=== PATIENT | female | born 1980 | race Caucasian/White ===

== ENCOUNTER 2017-04-21 14:52 | Emergency (ER) | payer BC ==
[~2017-04-21] VITALS: Ht 167.6 cm; Wt 78.0 kg
[2017-04-21 14:54] VITALS: TEMP 36.7; Ht 167.6 cm; Wt 78.0 kg
[2017-04-21] MEDS ORDERED: CLIN1SOL23 TOP (15:42)
[2017-04-21] MEDS ORDERED: CLOB-77 TOP (15:44)
[2017-04-21] MEDS ORDERED: CETI10TA84 PO (15:46)
[2017-04-21] MEDS ORDERED: ZNTT/150 PO (15:47)
[2017-04-21] MEDS ORDERED: PRED10TA PO (15:49)
[2017-04-21] MEDS ORDERED: PTDOPS OPR (15:51)
--- NOTE | 2017-04-21 16:36 | EMERGENCY ROOM VISIT NOTE ---
History First contact with patient: 15:15 Chief Complaint: RASH Stated Complaint: RASH, PAIN IN EYE, BLISTERD History of Present Illness The patient is a 37 year old white female who presents to the Emergency Room with complaints of persisting rash on her trunk and extremities, as well as right eye pain and a headache. Patient states she had poison ed in February and was treated at that time. Symptoms fully resolved. This week she developed a similar rash on her trunk, arms, legs, neck, and face. She was seen by her PCPs office on and was given a steroid injection as well as oral prednisone. She was also prescribed Zantac but has not started it yet. She has been taking Zyrtec. She has involvement of her right arm, left arm, left hand, neck, left shoulder, bilateral flanks, lower abdomen, and left calf. She states the left flank is extremely itchy. She denies any pain. She does note that she just does not feel her usual self. She states she never gets sick. She has an aching-type feeling around her right eye. She spoke with the on- call physician today, and they recommended she come to the ED for ocular evaluation. She states she had chickenpox as a child and had an episode of shingles while with her son. No other cold symptoms. No fevers or chills. No change in vision. She denies any mucus drainage from the right eye. She has had some tearing. She feels as though the eye is strained. No other treatment. Review of Systems REVIEW OF SYSTEM: HEENT: No dizziness, hearing loss, or tinnitus. There is no difficulty swallowing and no oral lesions are present. LYMPH: No adenopathy. PULMONARY: No cough, shortness of breath, sputum production or hemoptysis. CARDIOVASCULAR: No chest pain, palpitations, shortness of breath or peripheral edema. GASTROINTESTINAL: No diarrhea, constipation, nausea, vomiting, or abdominal pain. GENITOURINARY: No dysuria, frequency, urgency or nocturia. NEUROLOGIC: No weakness, muscle tenderness, epilepsy or history of neurological problems. No history of chronic headaches. MUSCULOSKELETAL: No history of joint tenderness/swelling. No history of arthritis or arthralgias. SKIN: Current skin rash. PSYCHIATRIC: No history of depression or mental illness. ENDOCRINE: No history of diabetes, thyroid disorders, or abnormal hair growth. Past Medical/Surgical History Review surgeries: Knee surgery 4 Medical history: Significant for history of seizure 1 at age 10. Family History Significant for heart disease, cancer, kidney stones, seizures Social History Smoking Status: Never Smoker Smokeless Tobacco Use: No Alcohol Use: none Drug Use: none Marital Status: Housing Status: lives with family Occupation Status: employed Current/Historical Medications Scheduled Cetirizine (Zyrtec), 10 MG PO DAILY/PRN Clindamycin Phosphate (Topical (Clindamycin Phosphate), 1 APPLN TOP BID Clobetasol Propionate (Temovate), 1 APPLN TOP BID Olopatadine Hydrochloride (Pataday), 1 DROPS OPR DAILY Prednisone (Prednisone), 10 MG PO DAILY/UD Ranitidine (Zantac), 150 MG PO BID/PRN Physical Exam Vital Signs Date Time Temp Pulse Resp B/P (MAP) Pulse Ox O2 Delivery O2 Flow Rate FiO2 04/21/17 14:54 36.7 73 18 130/83 98 Room Air Physical Exam Gen.: Well-developed, well-nourished, young white female, in no acute distress. Sitting on a bed. Alert and oriented. Skin: Fair skinned. Warm and dry with good turgor. Multiple vesicular eruptions present on her left wrist, right wrist, right hand, left shoulder, right flank, and left calf. The previous involvement of her left cheek and chin have resolved. Neck is also resolving. Left flank has a larger patch that is macular, not raised, and almost looks bruised. It does noemí. No edema. No open wounds. She has 3 small vesicles erupting on her right cheek, just below the right eye. The patient is not diaphoretic. No abrasions. HEENT: Normocephalic atraumatic. Eyes PERRLA, EOMI. No conjunctiva or scleral injection. Slit lamp exam was performed after staining with fluorescein. There is no uptake on the cornea. No corneal abrasion, no dendritic lesion. She did have a large mucous band present across the sclera. This was removed with a Dacron swab. No foreign material was noted. Nares patent bilaterally without turbinate enlargement. No significant drainage. No epistaxis. Oropharynx without erythema or exudate. Medical Decision & Procedures Laboratory Results 04/21/17 16:30 Red Blood Count 4.93, Mean Corpuscular Volume 87.6, Mean Corpuscular Hemoglobin 30.0, Mean Corpuscular Hemoglobin Concent 34.3, Mean Platelet Volume 10.2, Neutrophils (%) (Auto) 86.6, Lymphocytes (%) (Auto) 12.3, Monocytes (%) (Auto) 0.7, Eosinophils (%) (Auto) 0.0, Basophils (%) (Auto) 0.1, Neutrophils # (Auto) 7.96, Lymphocytes # (Auto) 1.13, Monocytes # (Auto) 0.06, Eosinophils # (Auto) 0.00, Basophils # (Auto) 0.01 Test 04/21/17 16:30 White Blood Count 9.19 K/uL (4.8-10.8) Red Blood Count 4.93 M/uL (4.2-5.4) Hemoglobin 14.8 g/dL (12.0-16.0) Hematocrit 43.2 % (37-47) Mean Corpuscular Volume 87.6 fL (80-100) Mean Corpuscular Hemoglobin 30.0 pg (25-34) Mean Corpuscular Hemoglobin Concent 34.3 g/dl (32-36) Platelet Count 310 K/uL (130-400) Mean Platelet Volume 10.2 fL (7.4-10.4) Neutrophils (%) (Auto) 86.6 % Lymphocytes (%) (Auto) 12.3 % Monocytes (%) (Auto) 0.7 % Eosinophils (%) (Auto) 0.0 % Basophils (%) (Auto) 0.1 % Neutrophils # (Auto) 7.96 K/uL (1.4-6.5) Lymphocytes # (Auto) 1.13 K/uL (1.2-3.4) Monocytes # (Auto) 0.06 K/uL (0.11-0.59) Eosinophils # (Auto) 0.00 K/uL (0-0.5) Basophils # (Auto) 0.01 K/uL (0-0.2) RDW Standard Deviation 42.5 fL (36.4-46.3) RDW Coefficient of Variation 13.3 % (11.5-14.5) Immature Granulocyte % (Auto) 0.3 % Immature Granulocyte # (Auto) 0.03 K/uL (0.00-0.02) CBC obtained today was unremarkable. ED Course Patient was educated regarding today's findings. Conservative care measures were discussed. Slit-lamp exam was performed. CBC was also obtained. Patient was reassured that most of her rash appears consistent with poison ed exposure. Her left flank does not appear the same as the rest of the rash. She did show me pictures on her phone from yesterday. It was much more erythematous, raised, and urticarial in appearance than what it appears today. It has improved considerably. I would like her to continue with her current regimen of the Zantac, Zyrtec, prednisone, and oral anti-inflammatories. I do not think she requires antibiotics at this point. She does not require eyedrops at this point. She will watch the right eye and return for evaluation if conjunctival symptoms appear. Possibility of pink eye was discussed. Follow -up with her PCP this week for reexamination of the rash. She was reassured that I do not suspect varicella, shingles, or medication reaction at this point. Likelihood for contact dermatitis was discussed. Medical Decision Possibility of shingles, contact dermatitis, viral illness, thrombocytopenia, primary varicella eruption, cellulitis, and medication reaction were considered , among others. Medication Reconcilliation Current Medication List: was personally reviewed by me Blood Pressure Screening Patient's blood pressure: Normal blood pressure Impression Primary Impression: Contact dermatitis Departure Information Dispostion Home / Self-Care Forms WORK / SCHOOL INSTRUCTIONS, HOME CARE DOCUMENTATION FORM, IMPORTANT VISIT INFORMATION Patient Instructions [facility] Additional Instructions Avoid scratching if possible Finish the prednisone Continue with Zantac 150 mg once a day and Zyrtec once a day Follow-up with your PCP later this week for reexamination Avoid contact lens use today and tomorrow-watch for any mucous drainage from the right eye Return to the ED for any acute changes Problem Qualifiers Primary Impression: Contact dermatitis Contact dermatitis type: allergic Contact dermatitis trigger: unspecified trigger Qualified Codes: L23.9 - Allergic contact dermatitis, unspecified cause
[2017-04-21 16:38] LABS: BASO % 0.1 %; BASO ABS # 0.01 K/uL (0-0.2); COMPLETE YES; HEMATOCRIT 43.2 % (37-47); IG% 0.3 %; LYMPH % 12.3 %; LYMPH ABS # 1.13 K/uL (1.2-3.4); MEAN CELL VOLUME 87.6 fL (80-100); MEAN CORPUSCULAR HGB CONC 34.3 g/dl (32-36); MEAN PLATELET VOLUME 10.2 fL (7.4-10.4); MONO % 0.7 %; NEUT % 86.6 %; PLATELET COUNT 310 K/uL (130-400); RED BLOOD COUNT 4.93 M/uL (4.2-5.4); WHITE BLOOD COUNT 9.19 K/uL (4.8-10.8)
[2017-04-21 16:44] VITALS: BP 126/81; PULSE 77; O2SAT 98
== END 2017-04-21 16:45 | disposition home or self-care (01) ==
LOC: C.EDB 14:54 → C.EDD 16:45
DX: L23.9 Allergic contact dermatitis, unspecified cause (principal); R21 Rash and other nonspecific skin eruption; Z82.49 Family history of ischemic heart disease and other diseases of the circulatory system; Z82.0 Family history of epilepsy and other diseases of the nervous system

== ENCOUNTER → 2017-04-30 | Outpatient (CLI) | payer BC ==
[~2017-04-30] MED LIST: CETI10TA84 PO; CLIN1SOL23 TOP; CLOB-77 TOP; PRED10TA PO; PTDOPS OPR; ZNTT/150 PO
[2017-04-30 17:47] LABS: BLOOD UREA NITROGEN 15 mg/dl (7-18); BUN/CREATININE RATIO 16.8 (10-20); CARBON DIOXIDE 26 mmol/L (21-32); CHLORIDE 105 mmol/L (98-107); CREATININE 0.91 mg/dl (0.60-1.20); GLUCOSE 86 mg/dl (70-99); POTASSIUM 3.6 mmol/L (3.5-5.1); SODIUM 140 mmol/L (136-145)
== END | disposition home or self-care (01) ==
LOC: C.LABPVFM 11:49
PROVIDERS: ATTEND Nurse Practitioner
DX: L25.9 Unspecified contact dermatitis, unspecified cause (principal)